=== PATIENT | male | born 1960 | race Caucasian/White ===

== ENCOUNTER 2017-01-15 15:48 | Emergency (ER) | payer SELFPAY ==
--- NOTE | 2017-01-15 16:26 | EDM.PDOC ---
ED HPI GENERAL MEDICAL PROBLEM - General Chief Complaint: ENT Problem Stated Complaint: ABSCESS TOOTH Time Seen by Provider: 01/15/17 15:52 Source of Information: Reports: Patient History Limitations: Reports: No Limitations - History of Present Illness INITIAL COMMENTS - FREE TEXT/NARRATIVE: HISTORY AND PHYSICAL: History of present illness: Patient is a 56-year-old male who presents to the emergency room today with complaints of left lower dental pain 5 days. States he has been using ibuprofen X8 times daily and trying to manually massaged the painful area without any relief. Complains of mild swelling to the lower jawline. Denies any fever, chills, chest pain or shortness of breath. Review of systems: As per history of present illness and below otherwise all systems reviewed and negative. Past medical history: As per history of present illness and as reviewed below otherwise noncontributory. Surgical history: As per history of present illness and as reviewed below otherwise noncontributory. Social history: No reported history of drug or alcohol abuse. Family history: As per history of present illness and as reviewed below otherwise noncontributory. Physical exam: Gen.: Well-developed and well-nourished 56-year-old male. We'll do speak in full sentences without shortness of breath. Alert and oriented. HEENT: Atraumatic, normocephalic, pupils reactive, negative for conjunctival pallor or scleral icterus, mucous membranes moist, throat clear, neck supple, nontender, trachea midline. Dental decay and erythema noted at tooth #30 & #31. Mild swelling and tenderness noted to that site. Lungs: Clear to auscultation, breath sounds equal bilaterally, chest nontender. Heart: S1S2, regular rate and rhythm Abdomen: Soft, nondistended, nontender. Negative for masses or hepatosplenomegaly. Negative for costovertebral tenderness. Pelvis: Stable nontender. Genitourinary: Deferred. Rectal: Deferred. Extremities: Atraumatic, negative for cords or calf pain. Neurovascular unremarkable. Neuro: Awake, alert, oriented. Cranial nerves II through XII unremarkable. Cerebellum unremarkable. Motor and sensory unremarkable throughout. Exam nonfocal. Diagnostics: [] Therapeutics: Dental balls Impression: Dental abscess, dental decay Plan: 1. Please follow-up with a local dentist as we discussed. 2. Take your antibiotic as prescribed. These take an anti-inflammatory for daytime use, no more than 3 times per day. You may take the prescribed pain medication, although this may cause drowsiness so do not take it while needing to be functioning or driving. "Dental balls" have been provided for you. This is a topical numbing agent, apply along the gumline where there is pain, please do not swallow. 3. Return to the ED as needed as discussed Definitive disposition and diagnosis as appropriate pending reevaluation and review of above. Duration: Day(s): (5) Location: Reports: Other (Dental/Mouth) tooth Pain Score (Numeric/FACES): 10 - Related Data Allergies Allergy/AdvReac Type Severity Reaction Status Date / Time No Known Allergies Allergy Verified 01/15/17 16:11 Home Meds: Home Meds Aspirin 81 mg PO DAILY 01/15/17 [History] Clopidogrel [Plavix] 75 mg PO DAILY 01/15/17 [History] Levothyroxine 125 mcg PO DAILY 01/15/17 [History] Metoprolol Succinate [Toprol XL] 50 mg PO DAILY 01/15/17 [History] atorvaSTATin [Lipitor] 40 mg PO BEDTIME 01/15/17 [History] Social & Family History - Tobacco Use Smoking Status *Q: Never Smoker - Recreational Drug Use Recreational Drug Use: No ED ROS ENT - Review of Systems Review Of Systems: ROS reveals no pertinent complaints other than HPI. ED EXAM, ENT - Physical Exam Exam: See Below (See dictation) Course - Vital Signs Last Recorded V/S: Last Vital Signs Temp 36.8 C 01/15/17 15:48 Pulse 78 01/15/17 15:48 Resp 18 01/15/17 15:48 BP 142/87 H 01/15/17 15:48 Pulse Ox 95 01/15/17 15:48 Departure - Departure Time of Disposition: 16:26 Disposition: Home, Self-Care 01 Clinical Impression: Dental abscess, Dental decay - Discharge Information Referrals: PCP,None [Primary Care Provider] - Additional Instructions: My general discharge The following information is given to patients seen in the emergency department who are being discharged to home. This information is to outline your options for follow-up care. We provide all patients seen in our emergency department with a follow-up referral. The need for follow-up, as well as the timing and circumstances, are variable depending upon the specifics of your emergency department visit. If you don't have a primary care physician on staff, we will provide you with a referral. We always advise you to contact your personal physician following an emergency department visit to inform them of the circumstance of the visit and for follow-up with them and/or the need for any referrals to a consulting specialist. The emergency department will also refer you to a specialist when appropriate. This referral assures that you have the opportunity for follow-up care with a specialist. All of these measure are taken in an effort to provide you with optimal care, which includes your follow-up. Under all circumstances we always encourage you to contact your private physician who remains a resource for coordinating your care. When calling for follow-up care, please make the office aware that this follow-up is from your recent emergency room visit. If for any reason you are refused follow-up, please contact the [facility] Emergency Department at and asked to speak to the emergency department charge nurse. [facility] [address] [place] [id number] 1. Please follow-up with a local dentist as we discussed. 2. Take your antibiotic as prescribed. These take an anti-inflammatory for daytime use, no more than 3 times per day. You may take the prescribed pain medication, although this may cause drowsiness so do not take it while needing to be functioning or driving. "Dental balls" have been provided for you. This is a topical numbing agent, apply along the gumline where there is pain, please do not swallow. 3. Return to the ED as needed as discussed
[2017-01-15] MEDS ORDERED: Benzocaine 20% Topical Spray UD MUCMEM ONE (16:48)
[2017-01-15] MEDS ORDERED: Lidocaine 2% Viscous Solution 15 ML Cup PO ONE (16:48)
== END 2017-01-15 16:59 | disposition home or self-care (01) ==
LOC: MW.ED 15:48
DX: K04.7 Periapical abscess without sinus (principal); K02.9 Dental caries, unspecified; Z79.82 Long term (current) use of aspirin; Z79.02 Long term (current) use of antithrombotics/antiplatelets; Z79.899 Other long term (current) drug therapy
CPT/HCPCS: 99282; A9270